=== PATIENT | female | born 1970 ===

== ENCOUNTER 2021-02-05 11:54 | Outpatient (REF) | payer BC, SELFPAY ==
[2021-02-05 13:50] LABS: Glucose Urine UA NEG (NEG); Leukocyte Esterase Urine NEG (NEG); Nitrite Urine NEG (NEG); PH 6.5 (5.0-8.0); Urine Blood NEG (NEG); Urine Ketones NEG (NEG); Urine Protein NEG (NEG-TRACE)
[2021-02-05 13:54] LABS: Appearance Urine CLEAR; Color Urine YELLOW
[2021-02-05 14:03] LABS: Hematocrit 40.8 % (37-47); Hemoglobin 13.3 g/dl (12.0-16.0); Mean Corpuscular HGB Conc 32.6 g/dl (31.0-35.0); Mean Corpuscular Hemoglobin 30.6 pg (27.0-33.0); Mean Platelet Volume 12.1 fL (9.4-12.3); Platelet Count 180 X10*3/uL (160-400); Red Blood Count 4.34 X10*6/uL (4.20-5.50); Red Cell Distribution Width 12.5 % (11.0-16.0); White Blood Count 5.1 X10*3/uL (4.8-10.8)
[2021-02-05 14:13] LABS: Bacteria Urine TRACE /LPF; RBC Urine 0-2 /HPF (0); Squamous Epithelial Cell Urine 1+ /LPF; WBC Urine 0-2 /HPF (0-4)
[2021-02-05 14:30] LABS: Alanine Aminotransferase 8 U/L (0-31); Albumin Level 4.5 g/dL (3.5-5.0); Alkaline Phosphatase 84 U/L (39-117); Anion Gap 11 (12-20); Aspartate Amino Transferase 16 U/L (5-31); Bilirubin Total 0.4 mg/dL (0.0-1.0); Blood Urea Nitrogen 9 mg/dL (9-16); Calcium 9.5 mg/dL (8.4-10.2); Carbon Dioxide 26 mmol/L (22-29); Chloride 105 mmol/L (96-108); Cholesterol 221 mg/dL; Estimated Glomerular Filt Rate > 60; Glucose Fasting 89 mg/dL (60-99); HDL Cholesterol 75 mg/dL; LDL Cholesterol Calculated 126 mg/dl; Potassium 3.9 mmol/L (3.3-5.1); Sodium 138 mmol/L (135-145); Total Protein 7.6 g/dL (6.5-8.0); Triglycerides 100 mg/dL
[2021-02-05 14:53] LABS: TSH reflex Free T4 0.74 uIU/mL (0.32-4.0)
== END 2021-02-05 11:55 | disposition home or self-care (01) ==
LOC: HO.HMGCLDS 11:54
PROVIDERS: PCP Internal Medicine; Visit Provider Internal Medicine
DX: Z00.00 Encounter for general adult medical examination without abnormal findings (principal)
CPT/HCPCS: 36415; 80053; 80061; 81001; 84443; 85027

== ENCOUNTER 2021-11-15 15:03 | Outpatient (REF) | payer BC, SELFPAY ==
--- NOTE | ~2021-11-15 | XR_ITS ---
EXAMINATION: XR HIP, LEFT CLINICAL INFORMATION: Left hip pain. COMPARISON: None. TECHNIQUE: 2 views of the left hip. FINDINGS: No joint space narrowing. Small marginal osteophyte of the lateral femoral head and neck junction. No fracture. There are 2 calcific densities located proximal and lateral to the greater trochanter which could represent calcific tendinitis. XR/XR hip LT min 2V IMPRESSION: Minimal left hip osteoarthritis. No acute osseous abnormality. Possible calcific tendinitis adjacent to the greater trochanter.
[2021-11-15 18:04] LABS: Appearance Urine CLEAR; Color Urine YELLOW; Glucose Urine UA NEG (NEG); Leukocyte Esterase Urine NEG (NEG); Nitrite Urine NEG (NEG); Urine Blood TRACE (NEG); Urine Ketones NEG (NEG); Urine Protein NEG (NEG-TRACE)
[2021-11-15 18:36] LABS: Bacteria Urine 3+ /LPF; Squamous Epithelial Cell Urine 1+ /LPF
== END 2021-11-15 15:04 | disposition home or self-care (01) ==
LOC: HO.HMGCX 15:03
PROVIDERS: PCP Internal Medicine; Visit Provider Internal Medicine
DX: M25.552 Pain in left hip (principal); R10.9 Unspecified abdominal pain
CPT/HCPCS: 73502; 81001

== ENCOUNTER 2022-02-06 11:35 | Outpatient (REF) | payer BC, SELFPAY ==
[2022-02-06 13:54] LABS: MANUAL DIFF FLAG NO
[2022-02-06 14:01] LABS: Appearance Urine CLEAR; Color Urine YELLOW; Glucose Urine UA NEG (NEG); Leukocyte Esterase Urine NEG (NEG); Nitrite Urine NEG (NEG); Specific Gravity - Urine 1.015 (1.005-1.025); Urine Blood TRACE (NEG); Urine Ketones NEG (NEG); Urine Protein NEG (NEG-TRACE)
[2022-02-06 14:10] LABS: Basophils Percent Auto 0.5 % (0-2); Eosinophils Absolute Auto 0.1 X10*3/uL (0.0-0.4); Eosinophils Percent Auto 1.7 % (0-4); Hematocrit 40.3 % (37.0-47.0); Hemoglobin 12.8 g/dl (12.0-16.0); Imm Gran Abs Auto 0.01 X10*3/uL (0.00-0.03); Imm Gran Pct Auto 0.2 % (0.0-0.4); Lymphocytes Absolute Auto 1.6 X10*3/uL (1.2-4.9); Lymphocytes Percent Auto 26.3 % (20-40); Mean Corpuscular HGB Conc 31.8 g/dl (31.0-35.0); Mean Corpuscular Hemoglobin 30.5 pg (27.0-33.0); Mean Platelet Volume 11.6 fL (9.4-12.3); Monocytes Absolute Auto 0.4 X10*3/uL (0.1-1.2); Neutrophils Absolute Auto 3.8 x10*3/uL (2.0-8.3); Neutrophils Percent Auto 64.3 % (45-73); Platelet Count 237 X10*3/uL (160-400); Red Cell Distribution Width 13.3 % (11.0-16.0)
[2022-02-06 14:13] LABS: Squamous Epithelial Cell Urine TRACE /LPF; WBC Urine 0 /HPF (0-4)
[2022-02-06 14:22] LABS: Alanine Aminotransferase 30 U/L (0-31); Albumin Level 4.5 g/dL (3.5-5.0); Alkaline Phosphatase 79 U/L (39-117); Anion Gap 12 (12-20); Aspartate Amino Transferase 29 U/L (5-31); Bilirubin Total 0.6 mg/dL (0.0-1.0); Blood Urea Nitrogen 8 mg/dL (9-16); Calcium 9.7 mg/dL (8.4-10.2); Carbon Dioxide 26 mmol/L (22-29); Chloride 106 mmol/L (96-108); Estimated Glomerular Filt Rate > 60; Glucose Fasting 90 mg/dL (60-99); Potassium 4.4 mmol/L (3.3-5.1); Sodium 140 mmol/L (135-145); Total Protein 7.8 g/dL (6.5-8.0)
[2022-02-06 14:32] LABS: TSH reflex Free T4 1.22 uIU/mL (0.32-4.0)
== END 2022-02-06 11:36 | disposition home or self-care (01) ==
LOC: HO.HMGCLDS 11:35
PROVIDERS: PCP Internal Medicine; Visit Provider Internal Medicine
DX: Z00.00 Encounter for general adult medical examination without abnormal findings (principal)
CPT/HCPCS: 36415; 80053; 81001; 84443; 85025

== ENCOUNTER 2023-04-23 12:34 | Outpatient (REF) | payer BC, SELFPAY ==
[2023-04-23 15:57] LABS: MANUAL DIFF FLAG NO
[2023-04-23 16:06] LABS: Basophils Percent Auto 0.7 % (0-2); Eosinophils Percent Auto 0.5 % (0-4); Hematocrit 40.7 % (37.0-47.0); Hemoglobin 13.2 g/dl (12.0-16.0); Imm Gran Abs Auto 0.04 X10*3/uL (0.00-0.03); Imm Gran Pct Auto 0.7 % (0.0-0.4); Lymphocytes Absolute Auto 1.6 X10*3/uL (1.2-4.9); Lymphocytes Percent Auto 27.5 % (20-40); Mean Corpuscular HGB Conc 32.4 g/dl (31.0-35.0); Mean Corpuscular Hemoglobin 30.1 pg (27.0-33.0); Mean Corpuscular Volume 92.7 fL (80.0-98.0); Mean Platelet Volume 11.5 fL (9.4-12.3); Monocytes Absolute Auto 0.4 X10*3/uL (0.1-1.2); Monocytes Percent Auto 6.1 % (2-11); Neutrophils Absolute Auto 3.8 x10*3/uL (2.0-8.3); Neutrophils Percent Auto 64.5 % (45-73); Platelet Count 211 X10*3/uL (160-400); Red Blood Count 4.39 X10*6/uL (4.20-5.50); Red Cell Distribution Width 13.3 % (11.0-16.0); White Blood Count 5.9 X10*3/uL (4.8-10.8)
[2023-04-23 16:23] LABS: Alanine Aminotransferase 22 U/L (0-31); Albumin Level 4.6 g/dL (3.5-5.0); Alkaline Phosphatase 86 U/L (39-117); Anion Gap 13 (12-20); Aspartate Amino Transferase 27 U/L (5-31); Bilirubin Total 0.6 mg/dL (0.0-1.0); Blood Urea Nitrogen 13 mg/dL (9-16); Carbon Dioxide 25 mmol/L (22-29); Chloride 108 mmol/L (96-108); Cholesterol 237 mg/dL (<200); Estimated Glomerular Filt Rate 60; Glucose Fasting 87 mg/dL (60-99); HDL Cholesterol 68 mg/dL (>40); LDL Cholesterol Calculated 150 mg/dL (<100); Potassium 3.9 mmol/L (3.3-5.1); Sodium 142 mmol/L (135-145); Total Protein 7.9 g/dL (6.5-8.0); Triglycerides 96 mg/dL (<150)
[2023-04-23 16:37] LABS: TSH reflex Free T4 1.08 uIU/mL (0.32-4.0); Vitamin D 25-OH Total 39.4 ng/mL (>30)
== END 2023-04-23 12:35 | disposition home or self-care (01) ==
LOC: HO.HMGCLDS 12:34
PROVIDERS: PCP Internal Medicine; Visit Provider Internal Medicine
DX: Z00.00 Encounter for general adult medical examination without abnormal findings (principal); M79.652 Pain in left thigh
CPT/HCPCS: 36415; 80053; 80061; 82306; 84443; 85025

== ENCOUNTER 2023-05-11 12:57 | Outpatient (AMB) | payer BC, SELFPAY ==
--- NOTE | 2023-05-11 13:05 | MHC.PC.OV ---
Vital Signs 05/11/23 13:07 Height 5 ft 5 in Weight 164 lb BMI 27.3 BP 122/74 Blood Pressure Location Lt brachial Position Sitting Pulse 72 Pulse Source Pulse Oximeter Pulse Oximetry (%) 97 Oxygen Delivery Method Room Air Intake Visit Reasons: Physical exam Intake Note: Pt is here today for PE. Allergies No Known Allergies Allergy (Verified 05/11/23 13:10) Medication List - Last Reconciled 05/11/23 by Bhavna Bailey MD 5-hydroxytryptophan (5-HTP) (5-HTP) 100 mg PO DAILY acyclovir 400 mg PO QID PRN albuterol sulfate 90 mcg/actuation 2 puffs inhalation Q6H PRN estradiol 1 patch transdermal 2XW fexofenadine-pseudoephedrine 60-120 mg ER (Mansi-D 12 Hour) 1 tab PO Q12H PRN fluticasone propionate 50 mcg/actuation 1 spray intranasal DAILY [kinza root PO] [hemp oil PO] iodine (Kelp (iodine)) 225 mcg PO [Lion's Jace 1.5 g ] magnesium glycinate 500 mg PO [shanell good by stress PO] [omega 3 PO] progesterone micronized 100 mg PO BEDTIME [reishi mashroom 1.5 g] Saccharomyces boulardii (Daily Probiotic (S. boulardii)) 250 mg PO BID [stamets 7 1.5 g] [thorn stress B complex PO] [zinc phycolanate PO] Tobacco use date assessed: 05/11/23 Dental Screening Dental Screen Date: 05/11/23 Did you have a dental visit in the last 12 months?: Yes Did you have a dental problem in the last 6 months where you did not have access to dental care?: No Was dental information given to patient?: Patient has dentist HPI Physical exam HPI Details Pt presents for PE. PFSH Medical History (Updated 05/11/23 @ 13:51 by Bhavna Bailey MD) Constipation Abdominal pain Pain, joint, hip, left Abnormal mammogram of left breast Mammogram normal Annual physical exam Menopause Sarcoidosis Surgical History H/O: hysterectomy Family History Mother Kidney failure Social History Housing: House Patient Tobacco Use Status: Never used Tobacco e-Cigarette/Vaping Use: Never Used Second Hand Smoke Exposure: No service: No Current occupational status: employed Current occupation: patient support specialist Cognitive needs: No Hearing needs: No Vision needs: Yes Questionnaire PHQ-9 Over the last 2 weeks, how often have you been bothered by any of the following problems? 1. Little interest or pleasure in doing things: not at all 2. Feeling down, depressed, or hopeless: not at all 3. Trouble falling or staying asleep, or sleeping too much: not at all 4. Feeling tired or having little energy: not at all 5. Poor appetite or overeating: not at all 6. Feeling bad about yourself - or that you are a failure or have let yourself or your family down: not at all 7. Trouble concentrating on things, such as reading the newspaper or watching television: not at all 8. Moving or speaking so slowly that other people could have noticed. Or the opposite - being so fidgety or restless that you have been moving around a lot more than usual: not at all 9. Thoughts that you would be better off or of hurting yourself in some way: not at all Total score: 0 Depression Screening Interpretation: Negative Source: Developed by Drs. Ross Moody, Elena Reed, Chuck Fuller and colleagues, with an educational padmaja from [employer]. Thrive Questionnaire Date Thrive assessed: 11/15/21 I am a: Patient What is your living situation today?: I have a steady place to live Within the past 12 months, did the food you bought not last and you didn't have the money to get more?: Never true Within the past 12 months, did you worry whether your food would run out before you got money to buy more?: Never true Please select the resources that you would like help with: None AUDIT C Alcohol Use Questionnaire (AUDIT-C) 1. How often do you have a drink containing alcohol?: Monthly or less 2. How many drinks containing alcohol do you have on a typical day when you are drinking?: 1 or 2 3. How often do you have six or more drinks on one occasion?: Never Total Score: 1 ENZO-7 AMB Questionnaire ENZO-7 Date ENZO - 7 assessed: 11/15/21 Feeling nervous, anxious, or on edge: 0 = Not at all Not being able to stop or control worryin = Not at all Worrying too much about different things: 0 = Not at all Trouble relaxin = Not at all Being so restless that it is hard to sit still: 0 = Not at all Becoming easily annoyed or irritable: 0 = Not at all Feeling afraid as if something awful might happen: 0 = Not at all Total ENZO-7 score (0-4 normal; 5-9 mild; 10-14 moderate; 15-21 severe): 0 Source: Developed by Drs. Ross Moody, Elena Reed, Chuck Fuller and colleagues, with an educational padmaja from [employer]. Review of Systems Const All systems reviewed & are unremarkable except as noted in HPI and below Reports no additional complaints Eyes Reports no additional complaints ENT Reports no additional complaints Card Reports no additional complaints Resp Reports no additional complaints GI Reports no additional complaints Reports no additional complaints Musc Reports no additional complaints Physical exam (Primary Care) Vital Signs: Last Vital Signs Pulse 72 05/11/23 13:07 BP 122/74 05/11/23 13:07 Pulse Ox 97 05/11/23 13:07 Oxygen Delivery Method Room Air 05/11/23 13:07 BMI result Body Mass Index 27.3 Tobacco/Smoking Status: Tobacco use Status Tobacco use date assessed 05/11/23 05/11/23 13:18 Patient Tobacco Use Status Never used Tobacco 05/11/23 13:18 e-Cigarette/Vaping Use Never Used 05/11/23 13:05 PHQ-9: PHQ-9 Score PHQ-9: Total score 0 05/11/23 13:32 Depression Screening Interpretation: Negative Thrive Assessment: Date of Thrive Assessment Date Thrive assessed 11/15/21 05/11/23 13:05 Const General: no acute distress HENMT Head: Yes normal to inspection Ears: hearing grossly normal bilaterally General nose exam: Normal external nose present Mouth: Normal oral and palatal mucosa present Throat: Yes posterior oropharynx normal Eyes General: appearance normal, both eyes and all related structures Neck Neck: Yes supple Resp Effort & Inspection: normal respiratory effort Auscultation: clear to auscultation bilaterally Cardio Rhythm: regular rhythm Heart sounds: S1 normal heart sound present and S2 normal heart sound present GI Inspection: Yes normal to inspection Palpation (GI): Soft to palpation Percussion: Yes normal to percussion Auscultation: normal bowel sounds Assessment and Plan Assessment & Plan (1) Annual physical exam: Code(s): Z00.00 - Encounter for general adult medical examination without abnormal findings Plan: Well-balanced diet regular physical activity discussed with the patient. She is up-to-date with mammogram on colonoscopy and follows up with nurse practitioner for hormone replacement therapy. (2) Annual physical exam: Code(s): Z00.00 - Encounter for general adult medical examination without abnormal findings (3) Hx of adenomatous colonic polyps: Comment: [facility] colonoscopy 06/07 3 polyps, recheck 3 yrs Code(s): Z86.010 - Personal history of colonic polyps (4) Mammogram normal: Comment: 12/2020, 06/08 (5) Hyperlipemia: Code(s): E78.5 - Hyperlipidemia, unspecified Plan: Low-cholesterol diet regular physical activity discussed with the patient, repeat lipid profile in 6 months and return for physical in 1 year Orders: Orders Lipid Panel 6 Months E78.5 - Hyperlipidemia, unspecified Complete Blood Count Auto Diff 365 Days E78.5 - Hyperlipidemia, unspecified, Z00.00 - Encounter for general adult medical examination without abnormal findings Lipid Panel 365 Days E78.5 - Hyperlipidemia, unspecified, Z00.00 - Encounter for general adult medical examination without abnormal findings Comprehensive [place]. Panel Fast 365 Days E78.5 - Hyperlipidemia, unspecified, Z00.00 - Encounter for general adult medical examination without abnormal findings TSH reflex Free T4 365 Days E78.5 - Hyperlipidemia, unspecified, Z00.00 - Encounter for general adult medical examination without abnormal findings Medications: Changed From acyclovir 400 mg PO QID 40 tabs 5RF To acyclovir 400 mg PO QID PRN Coding Level of Care Code Est Pt Prev Care 40-64y(40849) Diagnoses Annual physical exam Z00.00 Hx of adenomatous colonic polyps Z86.010 Mammogram normal Hyperlipemia E78.5
[2023-05-11 13:07] VITALS: BP 122/74; PULSE 72; O2SAT 97; BMI 27.3
== END 2023-05-11 14:00 | disposition home or self-care (01) ==
PROVIDERS: Visit Provider Internal Medicine
DX: Z00.00 Encounter for general adult medical examination without abnormal findings (principal); Z86.010 Personal history of colon polyps; E78.5 Hyperlipidemia, unspecified
CPT/HCPCS: 99396

== ENCOUNTER 2024-05-02 11:32 | Outpatient (REF) | payer BC, SELFPAY ==
[2024-05-02 13:46] LABS: MANUAL DIFF FLAG NO
[2024-05-02 13:53] LABS: Basophils Absolute Auto 0.1 X10*3/uL (0.0-0.2); Basophils Percent Auto 0.8 % (0-2); Eosinophils Absolute Auto 0.1 X10*3/uL (0.0-0.4); Hematocrit 38.5 % (37.0-47.0); Hemoglobin 12.8 g/dl (12.0-16.0); Imm Gran Abs Auto 0.01 X10*3/uL (0.00-0.03); Imm Gran Pct Auto 0.2 % (0.0-0.4); Lymphocytes Absolute Auto 1.4 X10*3/uL (1.2-4.9); Lymphocytes Percent Auto 22.3 % (20-40); Mean Corpuscular HGB Conc 33.2 g/dl (31.0-35.0); Mean Corpuscular Hemoglobin 30.9 pg (27.0-33.0); Mean Platelet Volume 11.4 fL (9.4-12.3); Monocytes Absolute Auto 0.3 X10*3/uL (0.1-1.2); Monocytes Percent Auto 4.8 % (2-11); Neutrophils Absolute Auto 4.4 x10*3/uL (2.0-8.3); Neutrophils Percent Auto 70.9 % (45-73); Platelet Count 207 X10*3/uL (160-400); Red Blood Count 4.14 X10*6/uL (4.20-5.50); Red Cell Distribution Width 13.5 % (11.0-16.0); White Blood Count 6.2 X10*3/uL (4.8-10.8)
[2024-05-02 14:30] LABS: Alanine Aminotransferase 13 U/L (0-31); Albumin Level 4.5 g/dL (3.5-5.0); Alkaline Phosphatase 78 U/L (39-117); Anion Gap 14 (12-20); Aspartate Amino Transferase 19 U/L (5-31); Bilirubin Total 0.7 mg/dL (0.0-1.0); Blood Urea Nitrogen 11 mg/dL (9-16); Calcium 10.1 mg/dL (8.4-10.2); Carbon Dioxide 26 mmol/L (22-29); Chloride 108 mmol/L (96-108); Cholesterol 234 mg/dL (<200); Estimated Glomerular Filt Rate 59; Glucose Fasting 87 mg/dL (60-99); HDL Cholesterol 80 mg/dL (>40); LDL Cholesterol Calculated 139 mg/dL (<100); Potassium 3.7 mmol/L (3.3-5.1); Sodium 144 mmol/L (135-145); TSH reflex Free T4 0.62 uIU/mL (0.32-4.0); Total Protein 7.9 g/dL (6.5-8.0); Triglycerides 76 mg/dL (<150)
== END 2024-05-02 11:33 | disposition home or self-care (01) ==
LOC: HO.HMGCLDS 11:32
PROVIDERS: PCP Internal Medicine; Visit Provider Internal Medicine
DX: Z00.00 Encounter for general adult medical examination without abnormal findings (principal); E78.5 Hyperlipidemia, unspecified
CPT/HCPCS: 36415; 80053; 80061; 84443; 85025

== ENCOUNTER 2024-05-04 10:35 | Outpatient (REF) | payer BC, SELFPAY ==
[2024-05-04 14:07] LABS: Influenza A PCR NEGATIVE (Negative); Influenza B PCR NEGATIVE (Negative); Resp Syncy Virus RNA Qual PCR NEGATIVE (Negative); SARS COV2 PCR INHOUSE NEGATIVE (Negative)
== END 2024-05-04 10:36 | disposition home or self-care (01) ==
LOC: HO.HMGCLNP 10:35
PROVIDERS: Registered Nurse; PCP Internal Medicine; Visit Provider Internal Medicine
DX: J06.9 Acute upper respiratory infection, unspecified (principal)
CPT/HCPCS: 0241U

== ENCOUNTER 2024-05-04 10:35 | Outpatient (AMB) | payer BC, SELFPAY ==
[2024-05-04 10:40] VITALS: BP 108/66; PULSE 72; O2SAT 100; BMI 27.3
--- NOTE | 2024-05-04 10:40 | AM.OFFWIN_ITS ---
Intake Vital Signs 05/04/24 10:40 Height 5 ft 5 in Weight 164 lb BMI 27.3 BP 108/66 Blood Pressure Location Lt brachial Position Sitting Pulse 72 Pulse Source Pulse Oximeter Pulse Oximetry (%) 100 Oxygen Delivery Method Room Air Intake Visit Reasons: EP swollen lymph node, mouth pain Intake Note: Patient here for swollen lymph nodes, she initially thought it was due to a tooth but went to dentist and was told it was not related. Pt states its been going on since February but went away after a little while. Patient Tobacco Use Status: Never used Tobacco Allergies No Known Allergies Allergy (Verified 05/04/24 10:42) Do you need a note to return to daycare/school/sports/work: No HPI EP swollen lymph node, mouth pain HPI Details This note is constructed using voice recognition software. While every effort has been made to ensure accuracy, clinical nurse leader errors may have been included. The patient is a 54 year old femake who presents to the clinic today with concern for lymphadenopathy. She reports that back in February she had pain in her gums and teeth area on the right. She later had upper respiratory in fact 10, and the pain seemed to stopped sometime after that in March. The pain returned about a week ago in the same area, and she decided that it was time to be seen for this. She went to see her dentist who evaluated her and told her that it was nothing to do with her gums or mouth. They did note that she had a swollen lymph node in that area and advised her to be seen for this. She reports that with the return of the pain she developed an itchy throat and some mild chest congestion. She tried Mansi D last night to help with symptoms but it did not seem to resolve the symptoms completely. She notes that typically this time of year she does get some lymph node swelling on the opposite side, and tends to take Mansi day after symptoms start in it tends to help. She denies fever, shortness of breath, however notes that she has had an intermittent cough since her upper respiratory infection in February. She also has a diagnosis of sarcoidosis which does impact her coughing. She is generally well otherwise. She has an appointment with her primary care provider coming up on May 16. [facility] Medical History (Updated 04/21/24 @ 16:49 by Bhavna Bailey MD) Constipation Abdominal pain Pain, joint, hip, left Abnormal mammogram of left breast Mammogram normal Annual physical exam Menopause Sarcoidosis Surgical History H/O: hysterectomy Family History Mother Kidney failure Social History Housing: House Patient Tobacco Use Status: Never used Tobacco e-Cigarette/Vaping Use: Never Used Second Hand Smoke Exposure: No service: No Current occupational status: employed Current occupation: medical record specialist Cognitive needs: No Hearing needs: No Vision needs: Yes Review of Systems Const All systems reviewed & are unremarkable except as noted in HPI and below Physical Exam Vital Signs: Last Vital Signs Pulse 72 05/04/24 10:40 BP 108/66 05/04/24 10:40 Pulse Ox 100 05/04/24 10:40 Oxygen Delivery Method Room Air 05/04/24 10:40 BMI result Body Mass Index 27.3 Const General: cooperative, healthy appearing, comfortable and no acute distress Orientation/consciousness: patient oriented x3 Limitations: no limitations HEENT Head: Yes normal to inspection Ears: hearing grossly normal bilaterally, external ears normal and TM abnormal retracted General nose exam: Normal external nose present, No nasal discharge present and Abnormal mucous membranes and turbinates present boggy and pale Face and sinus: Yes normal facial exam and Yes sinuses nontender Mouth: Normal oral and palatal mucosa present and moist mucous membranes Throat: Yes tonsils normal, Yes uvula midline and Yes posterior oropharynx abnormal (Erythema) Eyes General: appearance normal, both eyes and all related structures Neck Neck: Yes normal visual inspection and Yes lymphadenopathy (Right anterior cervical lymph node chain <0.5cm, mobile, tender x 1 node ) Resp Effort & Inspection: normal respiratory effort, able to speak in complete sentences, Actively coughing, no respiratory distress, not tachypneic, no tripod positioning and no use of accessory muscles Auscultation: clear to auscultation bilaterally Cardio Rate: regular rate Rhythm: regular rhythm Heart sounds: normal S1 and S2 Skin General skin exam: no rashes or lesions noted Neuro General: patient oriented x3 Extrem General: Yes normal to inspection and Yes no clubbing, cyanosis or edema Assessment & Plan Assessment & Plan (1) Allergic rhinitis: Code(s): J30.9 - Allergic rhinitis, unspecified Qualifiers: Allergic rhinitis trigger: unspecified Allergic rhinitis seasonality: unspecified Qualified Code(s): J30.9 - Allergic rhinitis, unspecified Plan: Supportive measures encouraged and reviewed. Advised patient to try a Flonase nasal spray and second-generation antihistamine such as Zyrtec, Claritin, Mansi or similar. Advised consideration of sinus rinse if needed. Advised patient to follow up with primary care provider with worsening or failure to resolve. COVID swab obtained today to rule out given overlapping symptoms. Quarantine measures reviewed with patient. Given patient's concern that she may have had a lymph node present since February, advised her to follow up with PCP for consideration of additional workup, however given the size of this lymph node in the fact that pain had resolved and then came back it is entirely likely that this has not been present since that time. Patient agrees to keep her appointm ent with PCP in the next couple of weeks. Advised follow up sooner should she develop any worsening symptoms including fever, chills, cough, shortness of breath, or any other concerning features. Plan See above for full details and plan. Orders: Orders SARS-CoV2/FLU/RSV Today J06.9 - Acute upper respiratory infection, unspecified Coding Level of Care Code Est Pt Level 3 (82794) Diagnoses Allergic rhinitis, unspecified seasonality, unspecified trigger J30.9 Allergic rhinitis trigger: unspecified Allergic rhinitis seasonality: unspecified
== END 2024-05-04 11:26 | disposition home or self-care (01) ==
PROVIDERS: PCP Internal Medicine; Visit Provider Registered Nurse
DX: J30.9 Allergic rhinitis, unspecified (principal)

== ENCOUNTER 2024-05-16 12:00 | Outpatient (AMB) | payer BC, SELFPAY ==
[2024-05-16 12:10] VITALS: BP 116/70; PULSE 64; O2SAT 99; BMI 25.3
--- NOTE | 2024-05-16 12:10 | MHC.PC.OV ---
Vital Signs 05/16/24 12:10 Height 5 ft 5 in Weight 152 lb BMI 25.3 BP 116/70 Blood Pressure Location Rt brachial Position Sitting Pulse 64 Pulse Source Pulse Oximeter Pulse Oximetry (%) 99 Oxygen Delivery Method Room Air Intake Visit Reasons: PE Intake Note: Pt is here today for her PE Allergies albuterol Adverse Reaction (Uncoded 05/16/24 12:13) chest discomfort Medication List - Last Reconciled 05/16/24 by Bhavna Bailey MD 5-hydroxytryptophan (5-HTP) (5-HTP) 100 mg PO DAILY albuterol sulfate 90 mcg/actuation 2 puffs inhalation Q6H PRN estradiol 1 patch transdermal 2XW fexofenadine-pseudoephedrine 60-120 mg ER (Mansi-D 12 Hour) 1 tab PO Q12H PRN [kinza root PO] [hemp oil PO] iodine (Kelp (iodine)) 225 mcg PO [Lion's Jace 1.5 g ] magnesium glycinate 500 mg PO [shanell good by stress PO] [omega 3 PO] progesterone micronized 100 mg PO BEDTIME [reishi mashroom 1.5 g] Saccharomyces boulardii (Daily Probiotic (S. boulardii)) 250 mg PO BID [stamets 7 1.5 g] [thorn stress B complex PO] [zinc phycolanate PO] Tobacco use date assessed: 05/16/24 Dental Screening Dental Screen Date: 05/16/24 Did you have a dental visit in the last 12 months?: Yes Did you have a dental problem in the last 6 months where you did not have access to dental care?: No Was dental information given to patient?: Patient has dentist HPI PE HPI Details Pt presents for PE. PFSH Medical History (Updated 05/16/24 @ 13:05 by Bhavna Bailey MD) Constipation Abdominal pain Pain, joint, hip, left Abnormal mammogram of left breast Mammogram normal Menopause Sarcoidosis Surgical History H/O: hysterectomy Family History Mother Kidney failure Social History Housing: House Patient Tobacco Use Status: Never used Tobacco e-Cigarette/Vaping Use: Never Used Second Hand Smoke Exposure: No service: No Current occupational status: employed Current occupation: retail specialist Cognitive needs: No Hearing needs: No Vision needs: Yes Questionnaire PHQ-9 Over the last 2 weeks, how often have you been bothered by any of the following problems? 1. Little interest or pleasure in doing things: not at all 2. Feeling down, depressed, or hopeless: not at all 3. Trouble falling or staying asleep, or sleeping too much: not at all 4. Feeling tired or having little energy: not at all 5. Poor appetite or overeating: not at all 6. Feeling bad about yourself - or that you are a failure or have let yourself or your family down: not at all 7. Trouble concentrating on things, such as reading the newspaper or watching television: not at all 8. Moving or speaking so slowly that other people could have noticed. Or the opposite - being so fidgety or restless that you have been moving around a lot more than usual: not at all 9. Thoughts that you would be better off or of hurting yourself in some way: not at all Total score: 0 Depression Screening Interpretation: Negative Depression Screening Done: Yes 13460 - PHQ-9 Billing: Yes Source: Developed by Drs. Ross Moody, Elena Reed, Chuck Fuller and colleagues, with an educational padmaja from [employer]. Thrive Questionnaire Date Thrive assessed: 05/16/24 I am a: Patient What is your living situation today?: I have a steady place to live Within the past 12 months, did the food you bought not last and you didn't have the money to get more?: Never true Within the past 12 months, did you worry whether your food would run out before you got money to buy more?: Never true Do you have trouble paying for medicines?: No Do you have trouble getting transportation to medical appointments?: No Do you have trouble paying your heating and electricity bill?: No Do you have trouble taking care of your child, family member or friend?: No Do you have trouble with day-to-day activities such as bathing, preparing meals, shopping, managing finances, etc.?: No Are you currently unemployed and looking for a job?: No Are you interested in more education?: No Please select the resources that you would like help with: None Currently or been in a relationship where the following occur: No concerns reported THRIVE Score: 0 AUDIT C Alcohol Use Questionnaire (AUDIT-C) 1. How often do you have a drink containing alcohol?: 2-4 times a month 2. How many drinks containing alcohol do you have on a typical day when you are drinking?: 1 or 2 3. How often do you have six or more drinks on one occasion?: Never Total Score: 2 ENZO-7 AMB Questionnaire ENZO-7 Date ENZO - 7 assessed: 05/16/24 Feeling nervous, anxious, or on edge: 0 = Not at all Not being able to stop or control worryin = Not at all Worrying too much about different things: 0 = Not at all Trouble relaxin = Not at all Being so restless that it is hard to sit still: 0 = Not at all Becoming easily annoyed or irritable: 0 = Not at all Feeling afraid as if something awful might happen: 0 = Not at all Total ENZO-7 score (0-4 normal; 5-9 mild; 10-14 moderate; 15-21 severe): 0 Source: Developed by Drs. Ross Moody, Elena Reed, Chuck Fuller and colleagues, with an educational padmaja from [employer]. Review of Systems Const All systems reviewed & are unremarkable except as noted in HPI and below Eyes Reports no additional complaints ENT Reports no additional complaints Card Reports no additional complaints Resp Reports no additional complaints GI Reports no additional complaints Reports no additional complaints Physical exam (Primary Care) Vital Signs: Last Vital Signs Pulse 64 05/16/24 12:10 BP 116/70 05/16/24 12:10 Pulse Ox 99 05/16/24 12:10 Oxygen Delivery Method Room Air 05/16/24 12:10 BMI result Body Mass Index 25.3 Tobacco/Smoking Status: Tobacco use Status Tobacco use date assessed 05/16/24 05/16/24 12:15 Patient Tobacco Use Status Never used Tobacco 05/16/24 12:15 e-Cigarette/Vaping Use Never Used 05/16/24 12:15 PHQ-9: PHQ-9 Score PHQ-9: Total score 0 05/16/24 12:15 Depression Screening Interpretation: Negative Thrive Assessment: Date of Thrive Assessment Date Thrive assessed 05/16/24 05/16/24 12:15 Currently or been in a relationship where the following occur: No concerns reported Const General: no acute distress HENMT Head: Yes normal to inspection Ears: hearing grossly normal bilaterally Face and sinus: Yes normal facial exam Mouth: Normal oral and palatal mucosa present Eyes General: appearance normal, both eyes and all related structures Neck Neck: Yes no lymphadenopathy and Yes supple Resp Effort & Inspection: normal respiratory effort Auscultation: clear to auscultation bilaterally Cardio Rhythm: regular rhythm Heart sounds: S1 normal heart sound present and S2 normal heart sound present GI Inspection: Yes normal to inspection Palpation (GI): Soft to palpation Percussion: Yes normal to percussion Auscultation: normal bowel sounds Assessment and Plan Assessment & Plan (1) Hx of adenomatous colonic polyps: Comment: [facility] colonoscopy 06/07 3 polyps, recheck 3 yrs Code(s): Z86.010 - Personal history of colonic polyps (2) Annual physical exam: Code(s): Z00.00 - Encounter for general adult medical examination without abnormal findings Plan: Well-balanced diet regular physical activity discussed with the patient she is up-to-date with the mammogram colonoscopy. Orders: Orders Lipid Panel 1 Year E78.5 - Hyperlipidemia, unspecified, Z00.00 - Encounter for general adult medical examination without abnormal findings TSH reflex Free T4 1 Year E78.5 - Hyperlipidemia, unspecified, Z00.00 - Encounter for general adult medical examination without abnormal findings Vitamin D 25-OH Total 1 Year E78.5 - Hyperlipidemia, unspecified, Z00.00 - Encounter for general adult medical examination without abnormal findings Comprehensive [place]. Panel Fast 1 Year E78.5 - Hyperlipidemia, unspecified, Z00.00 - Encounter for general adult medical examination without abnormal findings Complete Blood Count Auto Diff 1 Year E78.5 - Hyperlipidemia, unspecified, Z00.00 - Encounter for general adult medical examination without abnormal findings Coding Level of Care Code Est Pt Prev Care 40-64y(30351) Diagnoses Hx of adenomatous colonic polyps Z86.010 Annual physical exam Z00.00
== END 2024-05-16 13:11 | disposition home or self-care (01) ==
PROVIDERS: PCP Internal Medicine; Visit Provider Internal Medicine
DX: Z86.010 Personal history of colon polyps (principal); Z00.00 Encounter for general adult medical examination without abnormal findings

== ENCOUNTER → 2024-05-16 12:00 | Outpatient (BNVA) | payer BC, SELFPAY | PROVIDERS: PCP Internal Medicine; Visit Provider Internal Medicine | DX: Z00.00 Encounter for general adult medical examination without abnormal findings (principal); Z86.010 Personal history of colon polyps | CPT/HCPCS: 96127 ==

== ENCOUNTER 2025-05-09 11:41 | Outpatient (REF) | payer BC, SELFPAY ==
[2025-05-09 13:14] LABS: MANUAL DIFF FLAG NO
[2025-05-09 13:22] LABS: Hematocrit 39.6 % (37.0-47.0); Hemoglobin 13.0 g/dl (12.0-16.0); Imm Gran Abs Auto 0.01 X10*3/uL (0.00-0.03); Imm Gran Pct Auto 0.2 % (0.0-0.4); Lymphocytes Absolute Auto 1.5 X10*3/uL (1.2-4.9); Mean Corpuscular HGB Conc 32.8 g/dl (31.0-35.0); Mean Corpuscular Hemoglobin 30.7 pg (27.0-33.0); Mean Corpuscular Volume 93.6 fL (80.0-98.0); NRBC Abs Auto 0.000 X10*3/uL (0.0-0.012); NRBC Pct Auto 0.0 /100WBC (0.0-0.2); Platelet Count 214 X10*3/uL (160-400); Red Blood Count 4.23 X10*6/uL (4.20-5.50); White Blood Count 4.6 X10*3/uL (4.8-10.8)
[2025-05-09 13:56] LABS: Alanine Aminotransferase 16 U/L (0-31); Albumin Level 4.6 g/dL (3.5-5.0); Alkaline Phosphatase 76 U/L (39-117); Anion Gap 10 (12-20); Aspartate Amino Transferase 27 U/L (5-31); Blood Urea Nitrogen 11 mg/dL (9-16); Calcium 9.3 mg/dL (8.4-10.2); Carbon Dioxide 27 mmol/L (22-29); Chloride 109 mmol/L (96-108); Cholesterol 234 mg/dL (<200); Estimated Glomerular Filt Rate > 60; HDL Cholesterol 79 mg/dL (>40); Potassium 3.9 mmol/L (3.3-5.1); Sodium 142 mmol/L (135-145); Total Protein 7.6 g/dL (6.5-8.0); Triglycerides 65 mg/dL (<150)
--- OUTSIDE RECORDS SUMMARY | 2025-05-09 14:35 | XMS_ITS ---
Author Name [facility] Organization Unknown Care Team Organization Name Specialty Phone Email Start Date End [facility] 07/01/2024
== END 2025-05-09 11:42 | disposition home or self-care (01) ==
LOC: HO.HMGCLDS 11:41
PROVIDERS: PCP Internal Medicine; Visit Provider Internal Medicine
DX: Z00.00 Encounter for general adult medical examination without abnormal findings (principal); E78.5 Hyperlipidemia, unspecified
CPT/HCPCS: 36415; 80053; 80061; 82306; 84443; 85025

== ENCOUNTER 2025-05-18 12:01 | Outpatient (AMB) | payer BC, SELFPAY ==
[2025-05-18 12:11] VITALS: BP 106/68; PULSE 59; RESP 18; TEMP 36.8; O2SAT 99; BMI 27.6
--- NOTE | 2025-05-18 12:11 | A.OFFPC_ITS ---
Vital Signs 05/18/25 12:11 Height 5 ft 5 in Weight 166 lb BMI 27.6 BP 106/68 Blood Pressure Location Lt brachial Position Sitting Respiration 18 Pulse 59 Pulse Source Pulse Oximeter Temp 98.3 F Temp Source Oral Pulse Oximetry (%) 99 Oxygen Delivery Method Room Air Intake Visit Reasons: Annual PE Intake Note: Pt is here today for PE. Allergies albuterol Adverse Reaction (Uncoded 05/18/25 12:16) chest discomfort Medication List - Last Reconciled 05/18/25 by Bhavna Bailey MD 5-hydroxytryptophan (5-HTP) (5-HTP) 100 mg PO DAILY budesonide 90 mcg/actuation (Pulmicort Flexhaler) 1 inh inhalation BID estradiol 1 patch transdermal 2XW fexofenadine-pseudoephedrine 60-120 mg ER (Mansi-D 12 Hour) 1 tab PO Q12H PRN fluticasone propionate 110 mcg/actuation 1 inh inhalation BID [kinza root PO] [hemp oil PO] iodine (Kelp (iodine)) 225 mcg PO [Lion's Jace 1.5 g ] magnesium glycinate 500 mg PO [shanell good by stress PO] [omega 3 PO] progesterone micronized 100 mg PO BEDTIME [reishi mashroom 1.5 g] Saccharomyces boulardii (Daily Probiotic (S. boulardii)) 250 mg PO BID [stamets 7 1.5 g] [thorn stress B complex PO] [zinc phycolanate PO] Tobacco use date assessed: 05/18/25 Dental Screening Dental Screen Date: 05/18/25 Did you have a dental visit in the last 12 months?: Yes Did you have a dental problem in the last 6 months where you did not have access to dental care?: No Was dental information given to patient?: Patient has dentist HPI Annual PE HPI Details Pt presents for PE. PFSH Medical History (Updated 05/18/25 @ 13:14 by Bhavna Bailey MD) Hx of adenomatous colonic polyps Constipation Abdominal pain Pain, joint, hip, left Abnormal mammogram of left breast Mammogram normal Menopause Sarcoidosis Surgical History H/O: hysterectomy Family History Mother Kidney failure Social History Housing: House Patient Tobacco Use Status: Never used Tobacco e-Cigarette/Vaping Use: Never Used Second Hand Smoke Exposure: No service: No Current occupational status: employed Current occupation: sales development specialist Cognitive needs: No Hearing needs: No Vision needs: Yes Questionnaire PHQ-9 Over the last 2 weeks, how often have you been bothered by any of the following problems? 1. Little interest or pleasure in doing things: not at all 2. Feeling down, depressed, or hopeless: not at all 3. Trouble falling or staying asleep, or sleeping too much: not at all 4. Feeling tired or having little energy: not at all 5. Poor appetite or overeating: not at all 6. Feeling bad about yourself - or that you are a failure or have let yourself or your family down: not at all 7. Trouble concentrating on things, such as reading the newspaper or watching television: not at all 8. Moving or speaking so slowly that other people could have noticed. Or the opposite - being so fidgety or restless that you have been moving around a lot more than usual: not at all 9. Thoughts that you would be better off or of hurting yourself in some way: not at all Total score: 0 Depression Screening Interpretation: Negative Depression Screening Done: Yes 09609 - PHQ-9 Billing: Yes Source: Developed by Drs. Ross Moody, Elena Reed, Chuck Fuller and colleagues, with an educational padmaja from [employer]. Thrive Questionnaire Date Thrive assessed: 05/18/25 I am a: Patient What is your living situation today?: I have a steady place to live Within the past 12 months, did the food you bought not last and you didn't have the money to get more?: Never true Within the past 12 months, did you worry whether your food would run out before you got money to buy more?: Never true Do you have trouble paying for medicines?: No Do you have trouble getting transportation to medical appointments?: No Do you have trouble paying your heating and electricity bill?: No Do you have trouble taking care of your child, family member or friend?: No Do you have trouble with day-to-day activities such as bathing, preparing meals, shopping, managing finances, etc.?: No Are you currently unemployed and looking for a job?: No Are you interested in more education?: No Please select the resources that you would like help with: None Currently or been in a relationship where the following occur: No concerns reported THRIVE Score: 0 AUDIT C Alcohol Use Questionnaire (AUDIT-C) 1. How often do you have a drink containing alcohol?: 2-4 times a month 2. How many drinks containing alcohol do you have on a typical day when you are drinking?: 1 or 2 3. How often do you have six or more drinks on one occasion?: Never Total Score: 2 ENZO-7 AMB Questionnaire ENZO-7 Date ENZO - 7 assessed: 05/18/25 Feeling nervous, anxious, or on edge: 0 = Not at all Not being able to stop or control worryin = Not at all Worrying too much about different things: 0 = Not at all Trouble relaxin = Not at all Being so restless that it is hard to sit still: 0 = Not at all Becoming easily annoyed or irritable: 0 = Not at all Feeling afraid as if something awful might happen: 0 = Not at all Total ENZO-7 score (0-4 normal; 5-9 mild; 10-14 moderate; 15-21 severe): 0 Source: Developed by Drs. Ross Moody, Elena Reed, Chuck Fuller and colleagues, with an educational padmaja from [employer]. ENZO-7 Assessment Billing ENZO-7 Assessment Tool: ENZO-7 Assessment 36018 Review of Systems Const All systems reviewed & are unremarkable except as noted in HPI and below Eyes Reports no additional complaints ENT Reports no additional complaints Card Reports no additional complaints Resp Reports no additional complaints GI Reports no additional complaints Reports no additional complaints Physical exam (Primary Care) Vital Signs: Last Vital Signs Temp 98.3 F 05/18/25 12:11 Pulse 59 05/18/25 12:11 Resp 18 05/18/25 12:11 BP 106/68 05/18/25 12:11 Pulse Ox 99 05/18/25 12:11 Oxygen Delivery Method Room Air 05/18/25 12:11 BMI result Body Mass Index 27.6 Tobacco/Smoking Status: Tobacco use Status Tobacco use date assessed 05/18/25 05/18/25 12:12 Patient Tobacco Use Status Never used Tobacco 05/18/25 12:12 e-Cigarette/Vaping Use Never Used 05/18/25 12:12 PHQ-9: PHQ-9 Score PHQ-9: Total score 0 05/18/25 13:03 Depression Screening Interpretation: Negative Thrive Assessment: Date of Thrive Assessment Date Thrive assessed 05/18/25 05/18/25 12:20 Currently or been in a relationship where the following occur: No concerns reported Const General: no acute distress HENMT Head: Yes normal to inspection Ears: hearing grossly normal bilaterally Neck Neck: Yes no lymphadenopathy and Yes supple Resp Effort & Inspection: normal respiratory effort Auscultation: clear to auscultation bilaterally Cardio Rhythm: regular rhythm Heart sounds: S1 normal heart sound present and S2 normal heart sound present GI Inspection: Yes normal to inspection Palpation (GI): Soft to palpation Percussion: Yes normal to percussion Auscultation: normal bowel sounds Extrem General: Yes no clubbing, cyanosis or edema Coding Level of Care Code Est Pt Prev Care 40-64y(51840) Diagnoses Annual physical exam Z00.00 Sarcoidosis D86.9 Hyperlipemia E78.5 Additional Codes ENZO-7 Assessment Billing - ENZO-7 Assessment Tool: ENZO-7 Assessment 29211 ([id number]) PHQ-9 - 92602 - PHQ-9 Billing: Yes ([id number]) Assessment & Plan Assessment & Plan (1) Annual physical exam: Code(s): Z00.00 - Encounter for general adult medical examination without abnormal findings Category: Medical Plan: Well-balanced diet regular physical activity discussed with the patient. She is up-to-date with the Pap smear by [facility] mammogram and colonoscopy (2) Sarcoidosis: Comment: f/u [facility] pulmonology Code(s): D86.9 - Sarcoidosis, unspecified Category: Medical Plan: Follows up with blending operator at [facility] (3) Hyperlipemia: Comment: diet controlled Code(s): E78.5 - Hyperlipidemia, unspecified Category: Medical Plan: Low-cholesterol diet increase exercise discussed with the patient Orders: Orders Comprehensive [place]. Panel Fast 1 Year D86.9 - Sarcoidosis, unspecified, E78.5 - Hyperlipidemia, unspecified, Z00.00 - Encounter for general adult medical examination without abnormal findings Complete Blood Count Auto Diff 1 Year D86.9 - Sarcoidosis, unspecified, E78.5 - Hyperlipidemia, unspecified, Z00.00 - Encounter for general adult medical examination without abnormal findings Lipid Panel 1 Year D86.9 - Sarcoidosis, unspecified, E78.5 - Hyperlipidemia, unspecified, Z00.00 - Encounter for general adult medical examination without abnormal findings UA w Microscopic 1 Year D86.9 - Sarcoidosis, unspecified, E78.5 - Hyperlipidemia, unspecified, Z00.00 - Encounter for general adult medical examination without abnormal findings TSH reflex Free T4 1 Year D86.9 - Sarcoidosis, unspecified, E78.5 - Hyperlipidemia, unspecified, Z00.00 - Encounter for general adult medical examination without abnormal findings Vitamin D 25-OH Total 1 Year D86.9 - Sarcoidosis, unspecified, E78.5 - Hyperlipidemia, unspecified, Z00.00 - Encounter for general adult medical examination without abnormal findings Medications: Discontinued fluticasone propionate 110 mcg/actuation Discontinued Reason: Doctor's Order 1 inh inhalation BID 12 grams 1RF
== END 2025-05-18 13:23 | disposition home or self-care (01) ==
LOC: HO.HMCC 12:02
PROVIDERS: PCP Internal Medicine; Visit Provider Internal Medicine
DX: Z00.00 Encounter for general adult medical examination without abnormal findings (principal); D86.9 Sarcoidosis, unspecified; E78.5 Hyperlipidemia, unspecified

== ENCOUNTER → 2025-05-18 12:01 | Outpatient (BNVA) | payer BC, SELFPAY | PROVIDERS: PCP Internal Medicine; Visit Provider Internal Medicine | DX: Z00.00 Encounter for general adult medical examination without abnormal findings (principal); D86.9 Sarcoidosis, unspecified; E78.5 Hyperlipidemia, unspecified | CPT/HCPCS: 96127 ==